=== PATIENT | male | born 2000 | race Caucasian/White ===

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

== ENCOUNTER 2021-03-22 18:44 | Emergency (ER) | payer OTHER ==
[~2021-03-22] VITALS: Ht 190.5 cm; Wt 135.8 kg
[2021-03-22 18:46] VITALS: BP 139/82
== END 2021-03-22 23:40 | disposition left against medical advice (07) ==
LOC: M ED 18:44
DX: Z53.21 Procedure and treatment not carried out due to patient leaving prior to being seen by health care provider (principal)